=== PATIENT | female | born 1980 | race Caucasian/White ===

== ENCOUNTER 2023-06-16 17:02 | Emergency (ER) | payer OTHER ==
[2023-06-16 17:29] VITALS: BP 112/58; PULSE 62; RESP 16; TEMP 98.5; BMI 23.4
[2023-06-16] MEDS ORDERED: KETOROLAC TROMETHAMINE 30 MG/1 ML VIAL IM ONE (19:03)
[2023-06-16] MEDS ORDERED: KETOROLAC TROMETHAMINE 30 MG/1 ML VIAL ONE (19:10)
== END 2023-06-16 20:27 | disposition home or self-care (01) ==
LOC: JERFT 17:02
PROC: 3E0233Z Introduction of Anti-inflammatory into Muscle, Percutaneous Approach (ICD-10-PCS; principal; 2023-06-16)
DX: S83.412A Sprain of medial collateral ligament of left knee, initial encounter (principal); M25.462 Effusion, left knee; M25.562 Pain in left knee; W01.0XXA Fall on same level from slipping, tripping and stumbling without subsequent striking against object, initial encounter; Y93.66 Activity, soccer
CPT/HCPCS: 73562-TC-LT-FY; 99284-25